=== PATIENT | male | born 1990 | race Two or more races ===

== ENCOUNTER 2020-08-23 03:25 | Emergency (ER) | payer OTHER ==
[~2020-08-23] VITALS: Ht 157.5 cm; Wt 74.8 kg
[2020-08-23 03:35] VITALS: BP 142/99
--- NOTE | 2020-08-23 04:31 | NUR ---
PT IS MEDICALLY STABLE FOR D/C. Patient discharged to [facility] in custody in stable condition. Written and verbal after care instructions given. Patient verbalizes understanding of instruction.
== END 2020-08-23 04:32 | disposition home or self-care (01) ==
LOC: ER 03:27
DX: F11.90 Opioid use, unspecified, uncomplicated (principal); G43.909 Migraine, unspecified, not intractable, without status migrainosus; G89.29 Other chronic pain; J45.909 Unspecified asthma, uncomplicated; Z59.0 Homelessness; Z02.89 Encounter for other administrative examinations
CPT/HCPCS: 71045-TC

== ENCOUNTER 2021-08-14 10:02 | Emergency (ER) | payer SELFPAY ==
[~2021-08-14] VITALS: Ht 165.1 cm; Wt 68.0 kg
--- NOTE | 2021-08-14 10:02 | NUR ---
PT [address] C/O ABDOMINAL PAIN AFTER TAKING PERCOCET YESTERDAY. PT IS AAOX4, NOT IN RESPIRATORY DISTRESS, HOOKED TO [employer], KEPT RESTED AND COMFORTABLE. WILL CONTINUE TO MONITOR.
[2021-08-14] MEDS ORDERED: ONDA4TAB5 PO (10:29)
[2021-08-14] MEDS ORDERED: ONDANSETRON 4 MG TAB.RAPDIS PO ONE (10:30)
[2021-08-14] MEDS ORDERED: LIDOCAINE VISCOUS 2% UD 15 ML UDC MM ONE (10:30)
[2021-08-14] MEDS ORDERED: MAG HYDROX/AL HYDROX/SIMETH 30 ML UDC PO ONE (10:30)
[2021-08-14] MEDS ORDERED: LIDOCAINE VISCOUS 2% UD 15 ML UDC ONE (10:37)
[2021-08-14] MEDS ORDERED: MAG HYDROX/AL HYDROX/SIMETH 30 ML UDC ONE (10:37)
[2021-08-14] MEDS ORDERED: ONDANSETRON 4 MG TAB.RAPDIS ONE (10:38)
--- NOTE | 2021-08-14 11:39 | NUR ---
Neha ruiz in ED - 08/14/21 at 1152 by CHRISTA Patient discharged to home in stable condition. Written and verbal after care instructions given. Patient verbalizes understanding of instruction.
--- NOTE | 2021-08-14 11:45 | NUR ---
Patient discharged to home in stable condition. Written and verbal after care instructions given. Patient verbalizes understanding of instruction.
[2021-08-14 11:52] VITALS: BP 128/86
== END 2021-08-14 11:53 | disposition home or self-care (01) ==
LOC: ER 10:06
DX: R11.0 Nausea (principal); F19.10 Other psychoactive substance abuse, uncomplicated; J45.909 Unspecified asthma, uncomplicated; F10.10 Alcohol abuse, uncomplicated; F17.200 Nicotine dependence, unspecified, uncomplicated; Y90.9 Presence of alcohol in blood, level not specified; Z59.00 Homelessness unspecified
CPT/HCPCS: 99283; Q0162